=== PATIENT | male | born 1945 | race Caucasian/White ===

== ENCOUNTER 2019-08-16 12:34 | Outpatient (CLI) | payer MEDICARE, SELFPAY ==
--- NOTE | ~2019-08-16 | XR_ITS ---
EXAMINATION: XR lg joint inject/asp w image DATE: 08/16/2019 13:29 INDICATION: Left hip arthritis. TECHNIQUE: A time-out was performed to verify the patient's name, date of , and procedure to b e performed. The procedure including the risks, benefits, and alternatives was discussed with the pat ient. Risks discussed included bleeding and infection. The patient understood the risks and agreed to proceed. The skin overlying the left hip joint was prepped and draped in usual sterile fashion. An esthetic was administered with 1% lidocaine subcutaneously. A 22 G needle was advanced under fluoros copic guidance into the joint. Injection of 1 mL of Omnipaque 240 confirmed intra-articular position of the needle. Subsequently, injectate consisting of 2 mL 0.5% bupivacaine and 1 mL 80 mg/mL Depo-M edrol was instilled. The needle was removed and the entry site was cleaned and dressed. There were no immediate complications. Fluoroscopy exposure time was 0.1 minutes. The total number of images was 2. FINDINGS: Real-time fluoroscopy demonstrates the needle in the left hip joint. Patient's pain prior t o procedure:12/14. Patient's pain following the procedure: 07/17. IMPRESSION: 1. Left hip joint injection of local anesthetic and steroid with decrease in the patient's presenting pain. Reviewed, dictated and finalized at location A. IMPRESSION: 1. Left hip joint injection of local anesthetic and steroid with decrease in th e patient's presenting pain.
== END 2019-08-16 12:35 | disposition home or self-care (01) ==
LOC: ANHIMG 12:44
PROVIDERS: PCP Internal Medicine; Visit Provider Orthopaedic Surgery
DX: M16.12 Unilateral primary osteoarthritis, left hip (principal)
CPT/HCPCS: 20610; 77002; J1040; Q9966

== ENCOUNTER 2020-09-25 09:44 | Outpatient (CLI) | payer MEDICARE, SELFPAY ==
--- NOTE | ~2020-09-25 | NM_ITS ---
EXAMINATION: NM bone scan whole body DATE: 09/25/2020 13:39 INDICATION: Prostate cancer TECHNIQUE: 33.6 mCi Tc-99m HDP was administered intravenously. Delayed whole-body scintigrams were o btained. COMPARISON: CT abdomen and pelvis dated 09/25/2020 FINDINGS: Likely degenerative joint centered uptake at the bilateral acromioclavicular joints, left hip, bilate ral knees, right greater than left and at the bilateral hands and wrists. S-shaped thoracolumbar scol iosis with additional multilevel mild uptake likely degenerative in etiology associated with multiple facet and costovertebral articulations. Additional mild uptake at the posterior right greater trocha nter corresponding to a small amount of enthesopathic ossification on CT. No other suspicious foci of abnormal bone uptake to suggest metastatic disease. There is also asymmetric increased soft tissue a ctivity in the bilateral lower legs which could be related to venous insufficiency. IMPRESSION: 1. No lesion suspicious for metastatic disease. Reviewed, dictated and finalized at location A.
--- NOTE | ~2020-09-25 | CT_ITS ---
EXAMINATION: CT abdomen pelvis w con DATE: 09/25/2020 10:22 INDICATION: Prostate cancer TECHNIQUE: Computed tomography (CT) of the abdomen and pelvis was performed with 100 mL Omnipaque-350 intravenous contrast. Automated exposure control and iterative reconstruction technique were employe d. The dose-length product was 1510.42 mGy-cm. COMPARISON: CT dated 09/22/2007 FINDINGS: No interval change in a likely benign 7 mm noncalcified granuloma in the posterior sulcus of the left lower lobe. Heart size is normal. Atherosclerotic coronary artery calcifications. No pericardial or pleural effusion. Small sliding-type hiatal hernia. Diffuse hepatic steatosis. Gallbladder, spleen, p ancreas and bilateral adrenal glands are normal. Bilateral low-attenuation renal cysts, tiny on the r ight and with couple larger cysts on the left measuring up to 5.0 and 5.7 cm in maximal diameters. Th ere are few colonic diverticula with sigmoid predominance and without adjacent inflammatory change to suggest diverticulitis. Small bowel and appendix are normal. Bladder is normal. 3 surgical clips caleb billy brachytherapy seeds at the small prostate. No free intraperitoneal gas or fluid. No pathologicall y enlarged abdominal or pelvic lymphadenopathy. There is calcified atherosclerosis of the aorta and m any of the other arteries. 2530 degree thoracolumbar levoscoliosis with severe spondylosis. Mild righ t and severe left hip osteoarthritis. No suspicious lytic or blastic bone lesions. IMPRESSION: 1. Postoperative changes at the prostate. No evident metastatic disease. 2. Mild diverticulosis. 3. Diffuse hepatic steatosis. Reviewed, dictated and finalized at location A.
[2020-09-25 10:18] LABS: Estimated Glomerular Filt Rate 50
== END 2020-09-25 09:45 | disposition home or self-care (01) ==
PROVIDERS: PCP Internal Medicine; Visit Provider Urology
DX: C61 Malignant neoplasm of prostate (principal); K76.0 Fatty (change of) liver, not elsewhere classified; K57.30 Diverticulosis of large intestine without perforation or abscess without bleeding; K44.9 Diaphragmatic hernia without obstruction or gangrene
CPT/HCPCS: 74177; 78306; A9561; Q9967

== ENCOUNTER 2022-05-13 11:08 | Emergency (ER) | payer MEDICARE, SELFPAY ==
[2022-05-13 11:23] VITALS: BP 162/99; PULSE 78; RESP 20; TEMP 36.8; O2SAT 97
[2022-05-13 12:45] LABS: Basophils Absolute Auto 0.1 K/mm3 (0.0-0.1); Eosinophils Absolute Auto 0.2 K/mm3 (0-0.3); Eosinophils Percent Auto 2.2 % (0-4.4); Hematocrit 45.4 % (42.0-52.0); Hemoglobin 15.9 g/dL (14.0-18.0); Immature Granulocyte Absolute 0.04 K/mm3 (0.00-0.031); Immature Granulocyte Percent A 0.6 % (0-0.5); Lymphocytes Absolute Auto 1.21 K/mm3 (0.9-3.2); Lymphocytes Percent Auto 16.8 % (18.3-44.2); Mean Corpuscular Hemoglobin 32.1 pg (26-34); Mean Corpuscular Volume 91.5 fl (80-100); Mean Platelet Volume 11.6 fl (7.4-10.4); Monocytes Absolute Auto 0.5 K/mm3 (0.1-0.6); Monocytes Percent Auto 7.1 % (2.6-8.5); Neutrophils Absolute Auto 5.2 K/mm3 (1.3-6.7); Neutrophils Percent Auto 72.3 % (45.5-73.1); Platelet Count Result 205 k/mm3 (150-375); Red Blood Count 4.96 M/mm3 (4.6-6.20); Red Cell Distribution Width 13.2 % (11.5-14.5); White Blood Count 7.2 K/mm3 (4.5-10.0)
[2022-05-13 13:01] LABS: INR 1.4; Partial Thromboplastin Time 29.7 SECONDS (22.3-36.8); Prothrombin Time 16.8 Seconds (11.1-14.7)
--- NOTE | 2022-05-13 14:12 | ED.EPISTAXIS ---
HPI - Epistaxis General Chief complaint: Epistaxis Stated complaint: epistaxis since 729 this morning Time Seen by Provider: 05/13/22 12:01 Source: patient Mode of arrival: ambulatory Limitations: no limitations History of Present Illness HPI Narrative: This is a 76 year old male that presents to the ER for epistaxis. Noted since this morning. Reports he takes Rivaroxaban daily for history of atrial fibrillation. Reports that he was using his nose trimmers a couple of weeks ago and had a nose bleed after that. Today again he started to bleed, but was unable to control it. He has long-standing history of nosebleeds, but does not have a ENT doctor currently. Denies fever. Related Data Home Medications Medication Instructions Recorded Confirmed diltiazem HCl 360 mg 360 mg PO DAILY 06/02/19 03/11/22 tablet,extended release 24 hr (Mat[place]im [place]) metoprolol succinate 100 mg 100 mg PO DAILY 06/02/19 03/11/22 tablet,extended release 24 hr omega-3 fatty acids 1,000 mg 1,000 mg PO BID 06/02/19 03/11/22 capsule (Fish Oil Concentrate) rivaroxaban 20 mg tablet (Xarelto) 20 mg PO DAILY 04/15/20 03/11/22 Allergies Allergy/AdvReac Type Severity Reaction Status Date / Time Penicillins Allergy Severe rash Verified 05/13/22 11:30 Review of Systems Review of Systems: CONSTITUTIONAL: Denies fever ENT: Reports epistaxis All systems reviewed & are unremarkable except as noted in HPI and below PMFSH Past Medical History Medical History (Updated 05/13/22 @ 14:26 by Stefanie Suarez PA-C) Chronic atrial fibrillation Essential (primary) hypertension Mixed hyperlipidemia Overactive bladder Prostate cancer Type 2 diabetes mellitus without complication, with no history of insulin use Family History Family History Mother Family history of heart disease in male family member before age 55 Father Family history of heart disease in male family member before age 55 Other Family history of arthritis Hypertension Social History Social History (Updated 05/13/22 @ 14:18 by Stefanie Suarez PA-C) Smoking status: Former smoker Smoking end date: 06/07/77 Alcohol intake: current Exam Narrative: GENERAL: Well-appearing, well-nourished, and in no acute distress. HEAD: Normocephalic, atraumatic. EYES: EOMI. ENT: Left-sided epistaxis, able to visualize slow oozing anteriorly. Mucous membranes moist. Oropharynx without tonsillar hypertrophy exudate or other lesions. NECK: Supple. No adenopathy or masses. CHEST: No respiratory distress. EXTREMITIES: Normal range of motion. No edema. SKIN: Warm, dry, no rash. NEURO: No focal deficits. Alert and oriented x3. PSYCH: Normal mood and affect Course Vital Signs Vital signs: Vital Signs Temperature 98.2 F 05/13/22 11:23 Pulse Rate 78 05/13/22 11:23 Respiratory Rate 20 05/13/22 11:23 Blood Pressure 162/99 H 05/13/22 11:23 Pulse Oximetry 97 05/13/22 11:23 Oxygen Delivery Room Air 05/13/22 11:23 Temperature 98.2 F 05/13/22 11:23 Pulse Rate 78 05/13/22 11:23 Respiratory Rate 20 05/13/22 11:23 Blood Pressure 162/99 H 05/13/22 11:23 Pulse Oximetry 97 05/13/22 11:23 Oxygen Delivery Room Air 05/13/22 11:23 Procedures Epistaxis Control left: Epistaxis Control Date: 05/13/22 Epistaxis Control Time: 14:00 Nose Prepped With: oxymetazoline Direct Inspection: yes and anterior source identified Cautery Used: silver nitrate Patient Tolerated Procedure: well and no complications MDM - Epistaxis MDM Narrative Medical decision making narrative: Patient presents emergency department for epistaxis noted since this morning. Reports he was using his nasal tremors recently and thinks that he nicked an area in his nose. I was able to visualize an anterior source of bleeding. This was controlled with silver nitrate. His hemoglobin is normal. Patient
== END 2022-05-13 14:36 | disposition home or self-care (01) ==
PROVIDERS: Emergency Provider Physician Assistant; PCP Internal Medicine
DX: R04.0 Epistaxis (principal); I48.20 Chronic atrial fibrillation, unspecified; I10 Essential (primary) hypertension; E78.2 Mixed hyperlipidemia; N32.81 Overactive bladder; E11.9 Type 2 diabetes mellitus without complications; Z85.46 Personal history of malignant neoplasm of prostate; Z87.891 Personal history of nicotine dependence; Z79.01 Long term (current) use of anticoagulants
CPT/HCPCS: 30901; 36415; 85025; 85610; 85730; 99283; A9270

== ENCOUNTER 2023-02-15 02:54 | Day surgery (SDC) | payer MEDICARE, SELFPAY ==
[2023-02-05 14:03] VITALS: BMI 39.1
--- NOTE | 2023-02-15 09:04 | WPDANESEPPF ---
Anes - Initial Pre Proc Eval Procedure: Operation Date: 02/15/23 14:00 Proposed Procedures p Colonoscopy - Brandon Salazar MD Date/Time: 02/15/23 09:04 Surgeon: Brandon Salazar MD Pre Op Diagnosis: other fecal abnormalities Patient Data Age: 77 Gender: M Height: 1.91 m Weight: 142 kg Allergies Allergy/AdvReac Type Severity Reaction Status Date / Time Penicillins Allergy Severe Hives Verified 02/15/23 12:41 Home Medications Medication Instructions Recorded Confirmed Type metoprolol succinate 100 mg 100 mg PO DAILY 06/02/19 02/15/23 History tablet,extended release 24 hr omega-3 fatty acids 1,000 mg 1,000 mg PO DAILY 06/02/19 02/15/23 History capsule (Fish Oil Concentrate) rivaroxaban 20 mg tablet (Xarelto) 20 mg PO DAILY 04/15/20 02/15/23 History metformin 500 mg tablet 500 mg PO .COMPLEX #270 tabs 09/14/22 02/15/23 Rx hydrochlorothiazide 25 mg tablet 25 mg PO DAILY #90 tabs 10/16/22 02/15/23 Rx Lactobacillus rhamnosus GG 10 1 cap PO DAILY #30 caps 01/08/23 02/15/23 Rx billion cell capsule (Culturelle) gabapentin 100 mg capsule 100 mg PO DAILY 01/08/23 02/15/23 History diltiazem HCl 240 mg 240 mg PO DAILY 02/05/23 02/15/23 History capsule,extended release 24 hr, controlled (DILT-XR) atorvastatin 40 mg tablet See Rx Instructions .Route 02/09/23 02/15/23 Rx .COMPLEX #90 tabs tiotropium bromide 18 mcg capsule See Rx Instructions .Route 02/09/23 02/15/23 Rx with inhalation device (Spiriva .COMPLEX #90 caps with HandiHaler) valsartan 160 mg tablet See Rx Instructions .Route 02/09/23 02/15/23 Rx .COMPLEX #90 tabs Patient hx anesthesia problems: none Family hx anesthesia problems: none Results Review: All pre-operative results and documents have been reviewed as part of the pre-operative evaluation. [facility] Past Medical History Medical History (Updated 02/15/23 @ 09:05 by Alton Conner DO) Chronic atrial fibrillation COPD (chronic obstructive pulmonary disease) Essential (primary) hypertension Mixed hyperlipidemia Overactive bladder Prostate cancer Type 2 diabetes mellitus without complication, with no history of insulin use Family History Family History Mother Family history of heart disease in male family member before age 55 Father Family history of heart disease in male family member before age 55 Other Family history of arthritis Hypertension Social History Social History Smoking status: Former smoker Tobacco type: smokeless tobacco Smokeless tobacco user: chewing tobacco Smoking end date: 06/07/77 Additional smoking assessment comments: USES CHEWING TOBACCO CURRENTLY Alcohol intake: current Drinks per week: 1 Alcohol use details: DRINK Substance use: never Substance use type: does not use Lack of Transportation: No Lack of Food: Never True Current Housing: I Have Housing Concerned About Future Housing: No Difficulty Paying Gas/Electric Bills: No Difficulty Paying for Meds: No Currently Unemployed: No Education: Bachelor's Degree Difficulty w/ Childcare or Family Care: No Living arrangements: with family Spiritual care concerns: No Anes - Eval Final PreProcedure Day of Procedure 02/15/23 09:04 Patient weight: obese Heart: regular rate and rhythm Lungs: clear to auscultation Airway: Mallampati scale class II Neurological: alert and oriented Last oral intake: >/= 8 hours ASA classification: III Emergent: no Anesthetic plan: proceed Anesthesia type and monitoring: general GIVS and standard monitoring Results Review: All pre-operative results and documents have been reviewed as part of the pre-operative evaluation. Informed Consent: The patient's anesthetic plan and its attendant risks and benefits were discussed with the patient/family/POA. Questions were solicited and answers p
[2023-02-15 12:45] VITALS: BP 156/82; PULSE 73; RESP 17; TEMP 36.1; O2SAT 97; BMI 38.6
[2023-02-15] MEDS: LACTATED RINGERS 1,000 ML 150 ML IV CONT (13:02)
[2023-02-15 13:03] LABS: Glucose Point of Care 155 mg/dl (65-105)
--- NOTE | 2023-02-15 13:12 | PM.HPGS ---
History of Present Illness History of Present Illness Consent: Risks, benefits, and alternatives have been discussed and questions answered. Patient agrees to proceed with procedure. Chief complaint: hx of colon polyps, occult blood in stool Narrative: Bridger Mcelroy is a 77 year old male Presents for colonoscopy. Patient reports that he has had colon polyps on several previous colonoscopies. Most recently 2018. Patient presents today for screening colonoscopy. Patient reports over last 6-8 weeks has had loose stools. Patient has had 2-3 bowel movements on some days. 1-2 bowel movements on others. He denies any obvious blood in his stools. Stool cultures were obtained which were found to be negative occult blood was identified in 1 sample. Patient presents today for colonoscopy. Family history noncontributory. Patient does have known hemorrhoids. It they appear to be worse over the last month. Review of Systems Review of Systems: Review of systems noncontributory. [facility] Past Medical History Medical History (Updated 02/15/23 @ 13:14 by Brandon Salazar MD) Chronic atrial fibrillation COPD (chronic obstructive pulmonary disease) Essential (primary) hypertension Mixed hyperlipidemia Overactive bladder Prostate cancer Type 2 diabetes mellitus without complication, with no history of insulin use Family History Family History Mother Family history of heart disease in male family member before age 55 Father Family history of heart disease in male family member before age 55 Other Family history of arthritis Hypertension Social History Social History Smoking status: Former smoker Tobacco type: smokeless tobacco Smokeless tobacco user: chewing tobacco Smoking end date: 06/07/77 Additional smoking assessment comments: USES CHEWING TOBACCO CURRENTLY Alcohol intake: current Drinks per week: 1 Alcohol use details: DRINK Substance use: never Substance use type: does not use Lack of Transportation: No Lack of Food: Never True Current Housing: I Have Housing Concerned About Future Housing: No Difficulty Paying Gas/Electric Bills: No Difficulty Paying for Meds: No Currently Unemployed: No Education: Bachelor's Degree Difficulty w/ Childcare or Family Care: No Living arrangements: with family Spiritual care concerns: No Meds Home Medications and Allergies Home Medications Medication Instructions Recorded Confirmed Type metoprolol succinate 100 mg 100 mg PO DAILY 06/02/19 02/15/23 History tablet,extended release 24 hr omega-3 fatty acids 1,000 mg 1,000 mg PO DAILY 06/02/19 02/15/23 History capsule (Fish Oil Concentrate) rivaroxaban 20 mg tablet (Xarelto) 20 mg PO DAILY 04/15/20 02/15/23 History metformin 500 mg tablet 500 mg PO .COMPLEX #270 tabs 09/14/22 02/15/23 Rx hydrochlorothiazide 25 mg tablet 25 mg PO DAILY #90 tabs 10/16/22 02/15/23 Rx Lactobacillus rhamnosus GG 10 1 cap PO DAILY #30 caps 01/08/23 02/15/23 Rx billion cell capsule (Culturelle) gabapentin 100 mg capsule 100 mg PO DAILY 01/08/23 02/15/23 History diltiazem HCl 240 mg 240 mg PO DAILY 02/05/23 02/15/23 History capsule,extended release 24 hr, controlled (DILT-XR) atorvastatin 40 mg tablet See Rx Instructions .Route 02/09/23 02/15/23 Rx .COMPLEX #90 tabs tiotropium bromide 18 mcg capsule See Rx Instructions .Route 02/09/23 02/15/23 Rx with inhalation device (Spiriva .COMPLEX #90 caps with HandiHaler) valsartan 160 mg tablet See Rx Instructions .Route 02/09/23 02/15/23 Rx .COMPLEX #90 tabs Allergies Allergy/AdvReac Type Severity Reaction Status Date / Time Penicillins Allergy Severe Hives Verified 02/15/23 12:41 Vital Signs Vital Signs - 24 hr 02/15/23 12:45 Temperature 97 F L Pulse Rate 73 Respiratory Rate 17 Blood Pressure 156/82 H Pul
[2023-02-15 14:33] VITALS: BP 120/67; PULSE 49; RESP 23; O2SAT 93
[2023-02-15 14:43] VITALS: BP 124/81; PULSE 48; RESP 26; O2SAT 94
[2023-02-15 14:53] VITALS: BP 137/83; PULSE 57; RESP 24; O2SAT 98
== END 2023-02-15 15:03 | disposition home or self-care (01) ==
PROVIDERS: PCP Family Medicine; Visit Provider Internal Medicine Gastroenterology
PROC: 0DJD8ZZ Inspection of Lower Intestinal Tract, Via Natural or Artificial Opening Endoscopic (ICD-10-PCS; CPT 45378; principal; 2023-02-15 14:00)
DX: K64.8 Other hemorrhoids (principal); Z86.010 Personal history of colon polyps; I48.91 Unspecified atrial fibrillation; J44.9 Chronic obstructive pulmonary disease, unspecified; I10 Essential (primary) hypertension; E78.2 Mixed hyperlipidemia; E11.9 Type 2 diabetes mellitus without complications; N32.81 Overactive bladder; Z85.46 Personal history of malignant neoplasm of prostate; F17.220 Nicotine dependence, chewing tobacco, uncomplicated; Z79.01 Long term (current) use of anticoagulants; Z79.84 Long term (current) use of oral hypoglycemic drugs; Z79.51 Long term (current) use of inhaled steroids; E66.9 Obesity, unspecified; Z68.38 Body mass index [BMI] 38.0-38.9, adult
CPT/HCPCS: 45380; 82948; 88305; J2704; J7120

== ENCOUNTER 2024-08-04 13:50 | Outpatient (CLI) | payer MEDICARE, SELFPAY | END 2024-08-04 13:51 | disposition home or self-care (01) | PROVIDERS: PCP Family Medicine; Visit Provider Family Medicine | DX: R19.7 Diarrhea, unspecified (principal) | CPT/HCPCS: 74019 ==

== ENCOUNTER 2024-11-24 15:17 | Outpatient (CLI) | payer MEDICARE, SELFPAY ==
--- NOTE | ~2024-11-24 | CT_ITS ---
CLINICAL INDICATION: Urinary incontinence. Personal history of prostate cancer COMPARISON: 09/25/2020. TECHNIQUE: Multiple contiguous axial images of the abdomen and pelvis were performed following the ad ministration of with 100 mL Omnipaque-350 intravenous contrast The dose-length product (DLP) was 2064.10 mGy-cm. Automated exposure control and iterative reconstruction technique were employed. FINDINGS/OBSERVATIONS: Visualized lower thorax: Redemonstration of a 10 mm nodule within the left lung base, demonstrating 4 years of stability for w hich no further follow-up is needed.. The remainder of the bilateral lung bases are clear. The heart is within the upper limits of normal for size, without pericardial effusion. Liver: The liver demonstrates homogeneously decreased enhancement and is not enlarged. Gallbladder and biliary system: The gallbladder is only minimally distended, and otherwise unremarkable. Pancreas: The pancreas enhances homogeneously without ductal dilatation. Spleen: The spleen enhances homogeneously and is not enlarged. Kidneys: Multiple rounded foci of fluid attenuation within the left kidney, unchanged from 2020. The remainder of the bilateral kidneys otherwise enhance symmetrically without hydronephrosis or va l calculi. Adrenal glands: Unremarkable. Gastrointestinal tract: Colonic diverticulosis without surrounding inflammatory change. Fecal stasis within the colon. Appendix: The air-filled appendix is of normal caliber (axial series, images 135 through 155) Vasculature: Unremarkable. Lymph nodes: No pathologically enlarged or morphologically suspicious lymph nodes within the retroperitoneum or at the root of the mesentery. Pelvic structures: The bladder is only minimally distended, and otherwise unremarkable. The prostate gland is not enlarged. Body wall and musculoskeletal: Small fat-containing umbilical hernia. Age-appropriate degenerative disease within the lower thoracic and lumbosacral spines. IMPRESSION: Stable CT examination of the abdomen and pelvis, when compared with previous study performed 1. Fatty infiltration of the liver. Diverticulosis without surrounding inflammatory change. Age-appropriate degenerative disease within the lower thoracic and lumbosacral spines. No lytic or blastic lesions identified. Reviewed, dictated and finalized at location A. IMPRESSION: Stable CT examination of the abdomen and pelvis, when compared with previous st udy performed 09/25/2020. Fatty infiltration of the liver. Diverticulosis without surrounding inflammatory change. Age-appropriate degenerative disease within the lower thoracic and lumbosacral spines. No lytic or blastic lesions identified.
[2024-11-24 16:21] LABS: Estimated Glomerular Filt Rate 49
== END 2024-11-24 15:18 | disposition home or self-care (01) ==
LOC: ANHIMG 15:19
PROVIDERS: PCP Family Medicine; Visit Provider Internal Medicine Medical Oncology
DX: R32 Unspecified urinary incontinence (principal); N13.30 Unspecified hydronephrosis; K76.0 Fatty (change of) liver, not elsewhere classified; K57.30 Diverticulosis of large intestine without perforation or abscess without bleeding
CPT/HCPCS: 74177; Q9967